=== PATIENT | male | born 1955 | race American Indian/Alaskan Native ===

== ENCOUNTER 2018-09-18 13:03 | Emergency (ER) | payer BC ==
[2018-09-18] MEDS ORDERED: ASPIRIN PO ONE (13:10)
[2018-09-18 13:37] LABS: Hematocrit 37.7 % (35.5-45.6); Mean Corpuscular HGB Conc 34 % (32-34); Mean Corpuscular Volume 86 fl (84-94); Platelet Count 177 K/mm3 (140-440); Red Blood Count 4.37 M/mm3 (3.65-5.03); Red Cell Distribution Width 13.8 % (13.2-15.2)
--- NOTE | 2018-09-18 13:50 | XRay Report ---
AP CHEST: HISTORY: chest pain No comparison. Mild cardiomegaly is evident. Pulmonary vessels are within normal limits. Minor discoid atelectasis or scarring is noted at the right lung base. Otherwise, the lungs are clear. No pleural effusion or pneumothorax. The bony structures are grossly intact. IMPRESSION: Mild cardiomegaly. Minor discoid atelectasis or scarring at the right lung base.
[2018-09-18 13:53] LABS: BUN/Creatinine Ratio 14; Blood Urea Nitrogen 14 mg/dL (9-20); Calcium 8.9 mg/dL (8.4-10.2); Hemolysis Index 15
[2018-09-18] MEDS ORDERED: IBUPROFEN PO ONE (13:55)
[2018-09-18 14:26] LABS: Total Cells Counted 100
[2018-09-18 14:27] LABS: Giant Platelets Rare; Large Platelets Few; Platelet Estimate Consistent w Auto; Poikilocytosis Few
[2018-09-18 15:10] LABS: BUN/Creatinine Ratio 17; Blood Urea Nitrogen 15 mg/dL (9-20); Calcium 9.2 mg/dL (8.4-10.2); Hemolysis Index 12
[2018-09-18] MEDS ORDERED: NORCO 7.5/325 PO ONE (18:01)
--- NOTE | 2018-09-18 19:04 | Cat Scan Report ---
PROCEDURE: CT ANGIO CHEST TECHNIQUE: Axial images of the chest obtained with intravenous contrast with CTA protocol. Sagittal and coronal reconstructions also obtained. HISTORY: right pleuritic chest pain elevated ddimer COMPARISONS: No priors. FINDINGS: There is no evidence of pulmonary emboli. No aortic dissection or aneurysmal dilatation. No evidence of hilar or mediastinal adenopathy. No pericardial effusion. Cardiomegaly Small right pleural effusion. Elevation of the right hemidiaphragm and right basilar atelectasis. IMPRESSION: . No evidence of pulmonary emboli. Cardiomegaly. Small right pleural effusion. Elevation of the right hemidiaphragm and right basilar atelectasis. This document is electronically signed by Michael Garcia MD., September 18 2018 07:02:20 PM ET
--- NOTE | 2018-09-18 19:27 | Emergency Department Report ---
ED General Adult HPI - General Chief complaint: Chest Pain Stated complaint: CHEST PAIN Time Seen by Provider: 09/18/18 13:49 Source: patient Mode of arrival: Ambulatory Limitations: No Limitations - History of Present Illness Initial comments: Patient is a 63-year-old male who states for the last 2 days he's had some right chest discomfort laterally that he states it is pleuritic in nature. Patient states that he's not had a cough congestion fevers or chills. Patient is only thing he can think of that may have injured this area as he was leaning over in his truck for a long period of time while waiting in traffic and may have had some muscle strain at that time. He denies any heavy lifting or slips and falls or trauma. Patient states the pain is 8 out of 10 in severity and is worse with movement and with deep breaths. Severity scale (0 -10): 0 - Related Data Previous Rx's Medication Instructions Recorded Last Taken Type HYDROcodone/ACETAMINOPHEN 1 each PO Q6HR PRN #12 tablet 09/18/18 Unknown Rx [Hydrocodone-Acetamin 5-325 mg] predniSONE [Deltasone] 20 mg PO QDAY #5 tab 09/18/18 Unknown Rx Allergies Allergy/AdvReac Type Severity Reaction Status Date / Time No Known Allergies Allergy Unverified 09/18/18 13:05 ED Review of Systems ROS: Stated complaint: CHEST PAIN Other details as noted in HPI Comment: All other systems reviewed and negative ED Past Medical Hx - Past Medical History Hx Hypertension: Yes - Surgical History Past Surgical History?: No - Social History Smoking Status: Never Smoker Substance Use Type: Alcohol - Medications Home Medications: Home Medications Medication Instructions Recorded Confirmed Last Taken Type HYDROcodone/ACETAMINOPHEN 1 each PO Q6HR PRN #12 tablet 09/18/18 Unknown Rx [Hydrocodone-Acetamin 5-325 mg] predniSONE [Deltasone] 20 mg PO QDAY #5 tab 09/18/18 Unknown Rx ED Physical Exam - General Limitations: No Limitations General appearance: alert, in no apparent distress - Head Head exam: Present: atraumatic, normocephalic - Eye Eye exam: Present: normal appearance - ENT ENT exam: Present: mucous membranes moist - Neck Neck exam: Present: normal inspection - Respiratory Respiratory exam: Present: normal lung sounds bilaterally. Absent: respiratory distress, wheezes, rales, rhonchi, chest wall tenderness (right-sided rib pain is not reproducible with palpation) - Cardiovascular Cardiovascular Exam: Present: regular rate, normal rhythm, normal heart sounds. Absent: systolic murmur, diastolic murmur, rubs, gallop - GI/Abdominal GI/Abdominal exam: Present: soft, normal bowel sounds. Absent: distended, tenderness, guarding, rebound, rigid - Rectal Rectal exam: Present: deferred - Extremities Exam Extremities exam: Present: normal inspection - Back Exam Back exam: Present: normal inspection - Neurological Exam Neurological exam: Present: alert, oriented X3 - Psychiatric Psychiatric exam: Present: normal affect, normal mood - Skin Skin exam: Present: warm, dry, intact, normal color. Absent: rash ED Course Vital Signs 09/18/18 09/18/18 09/18/18 13:09 14:38 14:45 Temperature 98.6 F Pulse Rate 64 70 68 Respiratory 18 19 20 Rate Blood Pressure 128/75 Blood Pressure 129/74 [Left] O2 Sat by Pulse 100 96 Oximetry 09/18/18 09/18/18 09/18/18 15:00 15:15 15:31 Temperature Pulse Rate 66 64 64 Respiratory 20 17 18 Rate Blood Pressure 134/83 123/81 134/80 Blood Pressure [Left] O2 Sat by Pulse 96 93 95 Oximetry 09/18/18 09/18/18 09/18/18 15:45 16:01 16:15 Temperature Pulse Rate 62 65 61 Respiratory 17 8 L 16 Rate Blood Pressure 127/75 127/75 137/79 Blood Pressure [Left] O2 Sat by Pulse 93 93 94 Oximetry 09/18/18 09/18/18 09/18/18 16:59 17:01 17:15 Temperature Pulse Rate 68 64 64 Respiratory 16 21 18 Rate Blood Pressure 128/83 128/83 147/84 Blood Pressure [Left] O2 Sat by Pulse 96 98 95 Oximetry 09/18/18 09/18/18 17:30 17:45 Temperature Pulse Rate 64 67 Respiratory 18 18 Rate Blood Pressure 145/80 154/85 Blood Pressure [Left] O2 Sat by Pulse 97 95 Oximetry ED Medical Decision Making - Lab Data Result diagrams: 09/18/18 13:22 09/18/18 14:08 Lab Results 09/18/18 09/18/18 09/18/18 Range/Units 13:22 13:22 14:08 WBC 7.5 (4.5-11.0) K/mm3 RBC 4.37 (3.65-5.03) M/mm3 Hgb 13.0 (11.8-15.2) gm/dl Hct 37.7 (35.5-45.6) % MCV 86 (84-94) fl MCH 30 (28-32) pg MCHC 34 (32-34) % RDW 13.8 (13.2-15.2) % Plt Count 177 (140-440) K/mm3 Cataño % (Auto) Speech And Hearing Director Add Manual Diff Complete Total Counted 100 Seg Neuts % (Manual) 67.0 (40.0-70.0) % Band Neutrophils % 0 % Lymphocytes % (Manual) 19.0 (13.4-35.0) % Reactive Lymphs % (Man) 0 % Monocytes % (Manual) 9.0 H (0.0-7.3) % Eosinophils % (Manual) 4.0 (0.0-4.3) % Basophils % (Manual) 1.0 (0.0-1.8) % Metamyelocytes % 0 % Myelocytes % 0 % Promyelocytes % 0 % Blast Cells % 0 % Nucleated RBC % Not Reportable Seg Neutrophils # Man 5.0 (1.8-7.7) K/mm3 Band Neutrophils # 0.0 K/mm3 Lymphocytes # (Manual) 1.4 (1.2-5.4) K/mm3 Abs React Lymphs (Man) 0.0 K/mm3 Monocytes # (Manual) 0.7 (0.0-0.8) K/mm3 Eosinophils # (Manual) 0.3 (0.0-0.4) K/mm3 Basophils # (Manual) 0.1 (0.0-0.1) K/mm3 Metamyelocytes # 0.0 K/mm3 Myelocytes # 0.0 K/mm3 Promyelocytes # 0.0 K/mm3 Blast Cells # 0.0 K/mm3 WBC Morphology Not Reportable Hypersegmented Neuts Not Reportable Hyposegmented Neuts Not Reportable Hypogranular Neuts Not Reportable Smudge Cells Not Reportable Toxic Granulation Not Reportable Toxic Vacuolation Not Reportable Dohle Bodies Not Reportable Pelger-Huet Anomaly Not Reportable Jerry Rods Not Reportable Platelet Estimate Consistent w auto Clumped Platelets Not Reportable Plt Clumps, EDTA Not Reportable Large Platelets Few Giant Platelets Rare Platelet Satelliting Not Reportable Plt Morphology Comment Not Reportable RBC Morphology Not Reportable Dimorphic RBCs Not Reportable Polychromasia Not Reportable Hypochromasia Not Reportable Poikilocytosis Few Anisocytosis Not Reportable Microcytosis Not Reportable Macrocytosis Not Reportable Spherocytes Not Reportable Pappenheimer Bodies Not Reportable Sickle Cells Not Reportable Target Cells Not Reportable Tear Drop Cells Not Reportable Ovalocytes Not Reportable Helmet Cells Not Reportable [place] Bodies Not Reportable [place] Rings Not Reportable Rebekah Cells Not Reportable Bite Cells Not Reportable Crenated Cell Not Reportable Elliptocytes Not Reportable Acanthocytes (Spur) Not Reportable Rouleaux Not Reportable Hemoglobin C Crystals Not Reportable Schistocytes Not Reportable Malaria parasites Not Reportable Aki Bodies Not Reportable Hem Pathologist Commnt No D-Dimer 559.56 H (0-234) ng/mlDDU Sodium 142 (137-145) mmol/L Potassium 3.8 (3.6-5.0) mmol/L Chloride 105.2 (98-107) mmol/L Carbon Dioxide 28 (22-30) mmol/L Anion Gap 13 mmol/L BUN 14 (9-20) mg/dL Creatinine 1.0 (0.8-1.5) mg/dL Estimated GFR > 60 ml/min BUN/Creatinine Ratio 14 % Glucose 90 (75-100) mg/dL Calcium 8.9 (8.4-10.2) mg/dL Troponin T < 0.010 (0.00-0.029) ng/mL 09/18/18 Range/Units 14:08 WBC (4.5-11.0) K/mm3 RBC (3.65-5.03) M/mm3 Hgb (11.8-15.2) gm/dl Hct (35.5-45.6) % MCV (84-94) fl MCH (28-32) pg MCHC (32-34) % RDW (13.2-15.2) % Plt Count (140-440) K/mm3 Cataño % (Auto) Add Manual Diff Total Counted Seg Neuts % (Manual) (40.0-70.0) % Band Neutrophils % % Lymphocytes % (Manual) (13.4-35.0) % Reactive Lymphs % (Man) % Monocytes % (Manual) (0.0-7.3) % Eosinophils % (Manual) (0.0-4.3) % Basophils % (Manual) (0.0-1.8) % Metamyelocytes % % Myelocytes % % Promyelocytes % % Blast Cells % % Nucleated RBC % Seg Neutrophils # Man (1.8-7.7) K/mm3 Band Neutrophils # K/mm3 Lymphocytes # (Manual) (1.2-5.4) K/mm3 Abs React Lymphs (Man) K/mm3 Monocytes # (Manual) (0.0-0.8) K/mm3 Eosinophils # (Manual) (0.0-0.4) K/mm3 Basophils # (Manual) (0.0-0.1) K/mm3 Metamyelocytes # K/mm3 Myelocytes # K/mm3 Promyelocytes # K/mm3 Blast Cells # K/mm3 WBC Morphology Hypersegmented Neuts Hyposegmented Neuts Hypogranular Neuts Smudge Cells Toxic Granulation Toxic Vacuolation Dohle Bodies Pelger-Huet Anomaly Jerry Rods Platelet Estimate Clumped Platelets Plt Clumps, EDTA Large Platelets Giant Platelets Platelet Satelliting Plt Morphology Comment RBC Morphology Dimorphic RBCs Polychromasia Hypochromasia Poikilocytosis Anisocytosis Microcytosis Macrocytosis Spherocytes Pappenheimer Bodies Sickle Cells Target Cells Tear Drop Cells Ovalocytes Helmet Cells Warren-[place]il Bodies [place] Rings Rebekah Cells Bite Cells Crenated Cell Elliptocytes Acanthocytes (Spur) Rouleaux Hemoglobin C Crystals Schistocytes Malaria parasites Aki Bodies Hem Pathologist Commnt D-Dimer (0-234) ng/mlDDU Sodium 143 (137-145) mmol/L Potassium 4.1 (3.6-5.0) mmol/L Chloride 106.3 (98-107) mmol/L Carbon Dioxide 24 (22-30) mmol/L Anion Gap 17 mmol/L BUN 15 (9-20) mg/dL Creatinine 0.9 (0.8-1.5) mg/dL Estimated GFR > 60 ml/min BUN/Creatinine Ratio 17 % Glucose 91 (75-100) mg/dL Calcium 9.2 (8.4-10.2) mg/dL Troponin T < 0.010 (0.00-0.029) ng/mL - EKG Data -: EKG Interpreted by Nm - EKG Data 09/18/18 19:27 EKG shows sinus rhythm 64 normal axis normal intervals and no ST segment elevation or depressions. The patient does have T-wave inversions in V5 and V6. - Radiology Data [facility] [address] [place] [address] Cat Scan Report Signed Patient: PERRY DAUGHERTY MR#: [id number] : 1955 Acct:[id number] Age/Sex: 63 / M ADM Date: 09/18/18 Loc: ED Attending Dr: Ordering Physician: HUGH CUNNINGHAM MD Date of Service: 09/18/18 Procedure(s): CT angio chest Accession Number(s): [id number] cc: HUGH CUNNINGHAM MD PROCEDURE: CT ANGIO CHEST TECHNIQUE: Axial images of the chest obtained with intravenous contrast with CTA protocol. Sagittal and coronal reconstructions also obtained. HISTORY: right pleuritic chest pain elevated ddimer COMPARISONS: No priors. FINDINGS: There is no evidence of pulmonary emboli. No aortic dissection or aneurysmal dilatation. No evidence of hilar or mediastinal adenopathy. No pericardial effusion. Cardiomegaly Small right pleural effusion. Elevation of the right hemidiaphragm and right basilar atelectasis. IMPRESSION: . No evidence of pulmonary emboli. Cardiomegaly. Small right pleural effusion. Elevation of the right hemidiaphragm and right basilar atelectasis. This document is electronically signed by Michael Garcia MD., September 18 2018 07:02:20 PM ET Transcribed By: MARK ANTHONY Dictated By: MICHAEL GARCIA MD Electronically Authenticated By: MICHAEL GARCIA MD Signed Date/Time: 09/18/181903 DD/ 21 TD/TT: 09/18/181821 - Medical Decision Making Patient's CT is negative for a pulmonary embolus. Patient likely with pleurisy with a small pleural effusion. Patient be discharged home with Meds. symptomatically. Critical care attestation.: If time is entered above; I have spent that time in minutes in the direct care of this critically ill patient, excluding procedure time. ED Disposition Clinical Impression: Pleurisy with effusion Disposition: DC-01 TO HOME OR SELFCARE Is pt being admited?: No Does the pt Need Aspirin: No Condition: Stable Instructions: Pleurisy (ED) Referrals: AISHWARYA FREIRE MD [Primary Care Provider] - 3-5 Days Time of Disposition: 19:31
[2018-09-18 19:53] VITALS: BP 129/74
== END 2018-09-18 19:51 | disposition home or self-care (01) ==
LOC: ED 13:03
DX: J90 Pleural effusion, not elsewhere classified (principal); I10 Essential (primary) hypertension
CPT/HCPCS: 36415; 71045; 71275; 80048; 84484; 85007; 85025; 85379; 93005; 93010; 99285; Q9967

== ENCOUNTER 2018-10-07 11:54 | Inpatient (IN) | payer BC ==
--- NOTE | 2018-10-07 12:33 | Emergency Department Report ---
Chief Complaint: Dyspnea/Respdistress Stated Complaint: DR ORDERED Time Seen by Provider: 10/07/18 12:30 - HPI History of Present Illness: pt presents with a cough that began a couple days ago yellow phlegm production sob no fever no V/D states his PCP sent him to the ER for "PNA" did not have any imaging done right sided CP since 09/18/18 due to pleurisy PMHx HTN non smoker daily drinker MSE screening note: Focused history and physical exam performed. Due to findings the following was ordered: labs, EKG, CXR ED Disposition for MSE Condition: Stable
[2018-10-07 12:59] LABS: Basophils % (Auto) 0.2 % (0.0-1.8); Eosinophils # (Auto) 0.2 K/mm3 (0.0-0.4); Eosinophils % (Auto) 1.6 % (0.0-4.3); Hematocrit 34.8 % (35.5-45.6); Hemoglobin 11.7 gm/dl (11.8-15.2); Lymphocytes # (Auto) 0.9 K/mm3 (1.2-5.4); Lymphocytes % (Auto) 5.8 % (13.4-35.0); Mean Corpuscular HGB Conc 34 % (32-34); Mean Corpuscular Volume 86 fl (84-94); Monocytes # (Auto) 1.7 K/mm3 (0.0-0.8); Monocytes % (Auto) 11.5 % (0.0-7.3); Platelet Count 307 K/mm3 (140-440); Red Blood Count 4.04 M/mm3 (3.65-5.03); Red Cell Distribution Width 13.5 % (13.2-15.2)
[2018-10-07] MEDS ORDERED: IBUPROFEN PO ONE (13:38)
[2018-10-07] MEDS ORDERED: NORCO 5/325 PO ONE (13:38)
[2018-10-07] MEDS ORDERED: NACL 0.9% 1000 ML 1,000 ML IV ONE (13:40)
--- NOTE | 2018-10-07 13:44 | Emergency Department Report ---
HPI - General Chief Complaint: Dyspnea/Respdistress Time Seen by Provider: 10/07/18 12:30 - HPI HPI: Room 4 The patient is 63-year-old male presented with a chief complaint of right side pain. The patient states since 09/18/2018 had a constant pain in his right chest and flank. The patient had a CT angiogram of the chest performed 09/18/2018 which was read as negative for pulmonary emboli, elevation of right hemidiaphragm and right basilar atelectasis. The patient is to pleuritic component condition to the diaphoresis. Patient denies fever nausea or vomiting. The patient is complaining of a cough productive of yellow sputum for the past 3 days. The patient has been given ibuprofen and steroids but states it has not helped his symptoms. The patient was given a referral to passenger interline clerk Dr. Asher today who returns to the patient to be admitted for further management. The patient gets his pain score of 6-7/10 Location: Right side Duration: Constant since 09/18/2018 Quality: Pain Severity: 6-7/10 Modifying factors: [see above] Context: [see above] Mode of transportation: [not driving] ED Past Medical Hx - Past Medical History Previous Medical History?: Yes Hx Hypertension: Yes - Surgical History Past Surgical History?: No - Family History Family history: no significant - Social History Smoking Status: Former Smoker (none since 1982) Substance Use Type: None (denies illicit drug use), Alcohol (2 drinks daily) - Medications Home Medications: Home Medications Medication Instructions Recorded Confirmed Last Taken Type HYDROcodone/ACETAMINOPHEN 1 each PO Q6HR PRN #12 tablet 09/18/18 Unknown Rx [Hydrocodone-Acetamin 5-325 mg] predniSONE [Deltasone] 20 mg PO QDAY #5 tab 09/18/18 Unknown Rx ED Review of Systems ROS: Stated complaint: DR ORDERED Other details as noted in HPI Constitutional: chills. denies: fever Eyes: denies: eye pain ENT: denies: throat pain Respiratory: cough, shortness of breath Cardiovascular: denies: chest pain Endocrine: no symptoms reported Gastrointestinal: denies: nausea, vomiting Genitourinary: denies: dysuria Musculoskeletal: denies: back pain Neurological: denies: headache Physical Exam - Physical Exam Vital Signs: Vital Signs 10/07/18 12:30 Temperature 98.1 F Pulse Rate 62 Respiratory 18 Rate Blood Pressure 93/62 [Right] O2 Sat by Pulse 97 Oximetry Physical Exam: GENERAL: The patient is well-developed well-nourished male lying on stretcher not appearing to be in acute distress. [] HEENT: Normocephalic. Atraumatic. Extraocular motions are intact. Patient has moist mucous membranes. NECK: Supple. Trachea midline CHEST/LUNGS: Clear to auscultation. There is no respiratory distress noted. HEART/CARDIOVASCULAR: Regular. There is no tachycardia. There is no gallop rub or murmur. ABDOMEN: Abdomen is soft, nontender. Absent Pate sign. Patient has normal bowel sounds. There is no abdominal distention. SKIN: There is no rash. There is no edema. There is no diaphoresis. NEURO: The patient is awake, alert, and oriented. The patient is cooperative. The patient has normal speech MUSCULOSKELETAL: There is no evidence of acute injury. ED Course Vital Signs 10/07/18 12:30 Temperature 98.1 F Pulse Rate 62 Respiratory 18 Rate Blood Pressure 93/62 [Right] O2 Sat by Pulse 97 Oximetry ED Medical Decision Making - Lab Data Result diagrams: 10/07/18 12:39 10/07/18 12:39 - EKG Data -: EKG Interpreted by Me EKG shows normal: sinus rhythm Rate: normal - EKG Data When compared to previous EKG there are: no significant change Interpretation: unchanged when compared t (09/18/2018) - Radiology Data Radiology results: report reviewed (chest x-ray), image reviewed (chest x-ray) interpreted by me: Chest [id number] right-sided pleural effusion and no pneumothorax [address] [address] XRay Report Signed Patient: PERRY DAUGHERTY MR#: [id number] : 1955 Acct:[id number] Age/Sex: 63 / M ADM Date: 10/07/18 Loc: ED Attending Dr: Ordering Physician: LUCAS CABAN Date of Service: 10/07/18 Procedure(s): XR chest routine 2V Accession Number(s): [id number] cc: LUCAS CABAN Fluoro Time In Minutes: ROUTINE CHEST, TWO VIEWS: HISTORY: Cough, chest pain. Compared to 09/18/18. Borderline to mild cardiomegaly is stable. A moderate right pleural effusion has developed which compresses the right middle and lower lobes. Infiltrate at the right lung base cannot be excluded. The remainder of the lungs are clear. No pneumothorax. The bony structures are intact. Moderate thoracic spondylosis is noted. IMPRESSION: Borderline to mild cardiomegaly. Moderate right pleural effusion. Compressive atelectasis at the right lung base. Transcribed By: TTR Dictated By: ROBB GONSALES JR, MD Electronically Authenticated By: ROBB GONSALES JR, MD Signed Date/Time: 10/07/181350 DD/ 135 TD/TT: 10/07/18 135 - Differential Diagnosis pleurisy, pleural mass, pleural effusion, pneumonia, Critical care attestation.: If time is entered above; I have spent that time in minutes in the direct care of this critically ill patient, excluding procedure time. ED Disposition Clinical Impression: Loculated pleural effusion, Right-sided chest pain, Pleurisy Disposition: OP ADMIT IP TO THIS HOSP Is pt being admited?: Yes Does the pt Need Aspirin: No Condition: Fair Instructions: Chest Pain (ED) Time of Disposition: 14:14 (hospitalist paged (Dr Sethi))
--- NOTE | 2018-10-07 13:55 | XRay Report ---
ROUTINE CHEST, TWO VIEWS: HISTORY: Cough, chest pain. Compared to 09/18/18. Borderline to mild cardiomegaly is stable. A moderate right pleural effusion has developed which compresses the right middle and lower lobes. Infiltrate at the right lung base cannot be excluded. The remainder of the lungs are clear. No pneumothorax. The bony structures are intact. Moderate thoracic spondylosis is noted. IMPRESSION: Borderline to mild cardiomegaly. Moderate right pleural effusion. Compressive atelectasis at the right lung base.
[2018-10-07 14:10] LABS: Alanine Aminotransferase 8 units/L (7-56); Albumin 3.4 g/dL (3.9-5); BUN/Creatinine Ratio 11; Blood Urea Nitrogen 20 mg/dL (9-20); Calcium 9.6 mg/dL (8.4-10.2); Hemolysis Index 1
--- NOTE | 2018-10-07 14:23 | History and Physical Report ---
History of Present Illness Chief complaint: I cant breathe, and I was hurting on my right side History of present illness: 63 YO Male with HTN presents to ED for evaluation. Pt states that he has experienced shortness of breath and productive couch with yellow sputum over the past 3 days with persistent symptoms over the same time frame. Pt denies fever, chills, CP, Palpitations, Prolonged travel/immobility, unintentional weight loss, night sweats, bone pain, skin rash, or recent ill contacts. 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 Pt was seen and evaluated in ED and found to have RML Pneumonia complicated by a Right Pleural Effusion, ARF, as well as SIRS. Pt admitted to medical floor and initiated on Pneumonia protocol. Pulmonary team consulted in ED. CT chest pending at time of admission. Past History Past Medical History: hypertension Past Surgical History: No surgical history, Other (reviewed) Social history: . denies: smoking, alcohol abuse, prescription drug abuse Family history: hypertension Medications and Allergies Allergies Allergy/AdvReac Type Severity Reaction Status Date / Time No Known Allergies Allergy Verified 10/07/18 12:35 Home Medications Medication Instructions Recorded Confirmed Last Taken Type Carvedilol Phosphate [Carvedilol 80 mg PO QDAY 10/07/18 10/07/18 Unknown History ER] Fenofibric Acid (Choline) 135 mg PO QDAY 10/07/18 10/07/18 Unknown History [Trilipix] Nisoldipine [Sular] 17 mg PO QDAY 10/07/18 10/07/18 Unknown History Active Meds: Active Medications Sodium Chloride (Nacl 0.9% 1000 Ml) 1,000 mls @ 999 mls/hr IV ONCE ONE Stop: 10/07/18 14:40 Last Admin: 10/07/18 14:01 Dose: 999 mls/hr Documented by: Review of Systems Constitutional: no weight loss, no weight gain, no fever Ears, nose, mouth and throat: no ear pain, no ear discharge, no tinnitis, no decreased hearing Cardiovascular: shortness of breath, dyspnea on exertion, no chest pain Respiratory: cough, cough with sputum, shortness of breath, no congestion, no wheezing Gastrointestinal: no nausea, no vomiting, no diarrhea, no constipation Genitourinary Male: no hematuria, no flank pain, no discharge, no urinary frequency, no urinary hesitancy Rectal: no pain, no incontinence, no bleeding Musculoskeletal: no neck stiffness, no neck pain, no arm numbness/tingling Integumentary: no rash, no pruritis, no redness, no sores, no wounds Neurological: no transient paralysis, no paralysis, no weakness, no parathesias, no numbness, no tingling Psychiatric: no anxiety, no memory loss, no change in sleep habits, no sleep disturbances, no insomnia, no hypersomnia Endocrine: no cold intolerance, no heat intolerance, no polyphagia, no excessive thirst, no polydipsia, no polyuria, no nocturia Hematologic/Lymphatic: no easy bruising, no easy bleeding Allergic/Immunologic: no urticaria, no allergic rhinitis, no wheezing Exam - Constitutional Vitals: Temp Pulse Resp BP Pulse Ox 98.1 F 65 20 108/61 92 10/07/18 12:30 10/07/18 14:15 10/07/18 14:15 10/07/18 14:15 10/07/18 14:15 General appearance: Present: mild distress - EENT Eyes: Present: PERRL ENT: hearing intact, clear oral mucosa - Neck Neck: Present: supple, normal ROM - Respiratory Respiratory effort: normal Respiratory: bilateral: diminished - Cardiovascular Heart Sounds: Present: S1 & S2. Absent: rub, click - Extremities Extremities: pulses symmetrical, No edema Peripheral Pulses: within normal limits - Abdominal General gastrointestinal: Present: soft, non-tender, non-distended, normal bowel sounds Male genitourinary: Present: normal - Integumentary Integumentary: Present: clear, warm, dry - Musculoskeletal Musculoskeletal: gait normal, strength equal bilaterally - Psychiatric Psychiatric: appropriate mood/affect, intact judgment & insight - Neurologic Neurologic: CNII-XII intact, moves all extremities Results - Labs CBC & Chem 7: 10/07/18 12:39 10/07/18 12:39 Labs: Abnormal lab results 10/07/18 10/07/18 Range/Units 12:39 12:39 WBC 15.1 H (4.5-11.0) K/mm3 Hgb 11.7 L (11.8-15.2) gm/dl Hct 34.8 L (35.5-45.6) % Lymph % (Auto) 5.8 L (13.4-35.0) % [place] % (Auto) 11.5 H (0.0-7.3) % Lymph # 0.9 L (1.2-5.4) K/mm3 [place] # 1.7 H (0.0-0.8) K/mm3 Seg Neutrophils % 80.9 H (40.0-70.0) % Seg Neutrophils # 12.2 H (1.8-7.7) K/mm3 Creatinine 1.9 H (0.8-1.5) mg/dL Glucose 123 H (75-100) mg/dL Alkaline Phosphatase 27 L (35-129) units/L Albumin 3.4 L (3.9-5) g/dL Assessment and Plan - Patient Problems (1) Pneumonia Current Visit: Yes Status: Acute Qualifiers: Laterality: right Lung location: middle lobe of lung Plan to address problem: Admit to medical floor: Pneumonia Protocol: IV antibiotic therapy, blood cultures, supplemental oxygen, nebulizer therapy, pulse oximetry, NIPPV as clinically indicated, CBC, BMP, Chest X ray, CT Chest, D dimer, BNP (2) ARF (acute renal failure) with tubular necrosis Current Visit: Yes Status: Acute Plan to address problem: IVF resuscitation therapy, monitor uop q shift, repeat bmp to monitor serum creatnine. (3) SIRS (systemic inflammatory response syndrome) Current Visit: Yes Status: Acute Plan to address problem: Iv antibiotic therapy, CBC, CMP, IVF resuscitation therapy, (4) Loculated pleural effusion Current Visit: Yes Status: Acute Plan to address problem: CT chest, Treat Pneumonia, Right lateral decubitus chest x ray to evaluate for layering of pleural effusion and improvement of pneumonia. IF worsening symptoms or layering of effusion then possible IR consult for thoracentesis. (5) DVT prophylaxis Current Visit: Yes Status: Acute Plan to address problem: SCD to BLE while in bed. Prophylactic heparin
[2018-10-07] MEDS ORDERED: SODIUM CHLORIDE FLUSH SYRINGE 10 ML IV PRN (14:58)
[2018-10-07] MEDS ORDERED: MORPHINE IV PRN (14:58)
[2018-10-07] MEDS ORDERED: TYLENOL PO PRN (14:58)
[2018-10-07] MEDS ORDERED: ZOFRAN IV PRN (14:58)
--- NOTE | 2018-10-07 17:20 | Cat Scan Report ---
PROCEDURE: CT CHEST WO CON TECHNIQUE: CT of the chest was performed without intravenous contrast. Coronal and sagittal reconstructions were included. HISTORY: dypsnea COMPARISONS: CTA of the chest from 09/18/2018. FINDINGS: Lungs/pleura: Large, partially loculated right pleural effusion is seen. There are multiple loculated components including some fluid anteriorly along the right lower thorax. Multifocal patchy right daniel g opacities are seen. No pneumothorax. The airways are patent. No nodules or masses. Bones: No acute finding. Thoracic inlet/chest wall/axilla: No thyroid nodules seen. No chest wall masses. No axillary lymphade nopathy. Upper abdomen: The visualized structures demonstrate no abnormality. Heart/pericardium: No coronary artery calculi. Unchanged multichamber cardiac enlargement. No pericar dial effusion. Mediastinum: No mediastinal masses or enlarged lymph nodes. Great vessels: Mildly ectatic descending thoracic aorta is seen measuring up to 3.3 cm AP. The ascend ing thoracic aorta is normal in caliber. IMPRESSION: 1. Large, partially loculated right pleural effusion with adjacent atelectasis versus pneumonia. 2. Unchanged cardiomegaly. 3. Unchanged mildly ectatic descending thoracic aorta measuring up to 3.3 cm. This document is electronically signed by Sophia Bell., October 07 2018 05:18:29 PM ET
[2018-10-07] MEDS: PROVENTIL IH PRN (21:29)
[2018-10-07] MEDS: HEPARIN SUB-Q SCH (22:39)
[2018-10-07] MEDS: SODIUM CHLORIDE FLUSH SYRINGE 10 ML IV SCH (22:43)
[2018-10-07] MEDS: COREG PO SCH (22:43)
[2018-10-08] MEDS: PERCOCET 5/325 PO PRN ×3 (00:42→20:18)
[2018-10-08] MEDS: PROVENTIL IH PRN (06:20)
[2018-10-08 06:49] LABS: Basophils % (Auto) 0.1 % (0.0-1.8); Eosinophils # (Auto) 0.1 K/mm3 (0.0-0.4); Eosinophils % (Auto) 0.8 % (0.0-4.3); Lymphocytes # (Auto) 0.9 K/mm3 (1.2-5.4); Lymphocytes % (Auto) 5.1 % (13.4-35.0); Mean Corpuscular HGB Conc 33 % (32-34); Mean Corpuscular Volume 87 fl (84-94); Monocytes # (Auto) 1.9 K/mm3 (0.0-0.8); Monocytes % (Auto) 11.3 % (0.0-7.3); Platelet Count 305 K/mm3 (140-440); Red Blood Count 4.16 M/mm3 (3.65-5.03); Red Cell Distribution Width 13.6 % (13.2-15.2)
[2018-10-08 07:11] LABS: BUN/Creatinine Ratio 15; Blood Urea Nitrogen 20 mg/dL (9-20); Calcium 9.1 mg/dL (8.4-10.2); Hemolysis Index 0
[2018-10-08] MEDS: DUONEB *Not for PRN Use IH SCH ×3 (08:16→20:30)
--- NOTE | 2018-10-08 08:16 | XRay Report ---
PORTABLE CHEST INDICATION: Right pleural effusion. COMPARISON: Yesterday. FINDINGS: Portable, frontal chest radiograph, 7:40 AM, 10/08/2018 demonstrates continued interval worsening dating back to 09/18/2018 at this institution with moderate right lung opacification/effusion with small aerated, though infiltrated right mid lung zone now noted. Stable cardiomediastinal silhouette/possible cardiomegaly. Clear left lung. Stable bones with few degenerative changes. EKG leads. CONCLUSION: Continued interval radiographic worsening with now moderate right lung opacity/effusion with few other findings, as described. Please correlate. Thank you for the opportunity to participate in this patient's care.
[2018-10-08] MEDS ORDERED: ZITHROMAX 500 MG in NACL 0.9% 250ML 250 ML IV SCH (10:00)
[2018-10-08] MEDS ORDERED: CARVEDILOL PHOSPHATE 80 MG PO SCH (10:00)
[2018-10-08] MEDS ORDERED: FENOFIBRIC ACID 135 MG PO SCH (10:00)
--- NOTE | 2018-10-08 10:01 | Progress Note ---
Assessment and Plan / Pneumonia RLL Admit to medical floor: Pneumonia Protocol: IV antibiotic therapy, blood cultures, supplemental oxygen, nebulizer therapy, pulse oximetry, NIPPV as clinically indicated, CBC, BMP, Chest X ray, CT Chest, D dimer, BNP /ARF (acute renal failure) with vasomotor nephropathy IVF resuscitation therapy, monitor uop q shift, repeat bmp to monitor serum creatnine. / SIRS (systemic inflammatory response syndrome) Iv antibiotic therapy, IVF resuscitation therapy, /Loculated pleural effusion CT chest, Treat Pneumonia, Right lateral decubitus chest x ray to evaluate for layering of pleural effusion and improvement of pneumonia. IF worsening symptoms or layering of effusion then possible IR consult for thoracentesis. / DVT prophylaxis SCD to BLE while in bed. Prophylactic heparin Brief History: 63 YO Male with HTN presents to ED for evaluation of shortness of breath and productive couch with yellow sputum over the past 3 days. 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 Pt was seen and evaluated in ED and found to have RML Pneumonia complicated by a Right Pleural Effusion, ARF, as well as possible sepsis. Pt admitted to medical floor and initiated on Pneumonia protocol. Pulmonary team consulted in ED. CT chest w/o contrast: 1. Large, partially loculated right pleural effusion with adjacent atelectasis versus pneumonia. 2. Unchanged cardiomegaly. 3. Unchanged mildly ectatic descending thoracic aorta measuring up to 3.3 cm. Hospitalists physical exam: GENERAL: well-developed and well-nourished white male lying on bed appeared to be in no discomfort. HEENT: Normocephalic. Atraumatic. No conjunctival congestion or icterus. Erin ent has moist mucous membranes. NECK: Supple. Trachea midline. CHEST/LUNGS: Diminished breath sounds on the right side, breathing nonlabored. No wheezes crackles or rhonchi. HEART/CARDIOVASCULAR: Regular in rate and rhythm. S1 and S2 positive. ABDOMEN: Abdomen is soft, nontender. Patient has normal bowel sounds. SKIN: There is no rash. Warm and dry. NEURO: No focal motor deficit. Follows command. MUSCULOSKELETAL: No joint effusion or tenderness. EXTRIMITY: No edema, no cyanosis or clubbing. PSYCH: Cooperative. Subjective Date of service: 10/08/18 Interval history: Patient seen and examined. Medical records and medication list reviewed. No acute event overnight noted by the RN. Patient c/o right sided chest pain and difficulty breathing. Patient is tolerating diet. Discussed plan of care at bedside with patient. Objective - Constitutional Vitals: Vital Signs - 12hr 10/07/18 10/07/18 10/08/18 22:43 23:30 05:55 Temperature 99.5 F 98.5 F Pulse Rate 74 76 72 Pulse Rate [ Anterior Bilateral Throughout] Respiratory 20 20 22 Rate Respiratory Rate [Anterior Bilateral Throughout] Blood Pressure 109/48 106/53 107/63 O2 Sat by Pulse 96 96 Oximetry 10/08/18 10/08/18 10/08/18 06:20 06:30 08:16 Temperature Pulse Rate Pulse Rate [ 79 76 77 Anterior Bilateral Throughout] Respiratory Rate Respiratory 18 17 20 Rate [Anterior Bilateral Throughout] Blood Pressure O2 Sat by Pulse Oximetry 10/08/18 10/08/18 08:26 10:00 Temperature Pulse Rate Pulse Rate [ 79 Anterior Bilateral Throughout] Respiratory Rate Respiratory 20 Rate [Anterior Bilateral Throughout] Blood Pressure O2 Sat by Pulse 94 Oximetry - Labs CBC & Chem 7: 10/08/18 06:07 10/08/18 06:07 Labs: Abnormal lab results 10/07/18 10/07/18 10/07/18 Range/Units 12:39 12:39 17:28 WBC 15.1 H (4.5-11.0) K/mm3 Hgb 11.7 L (11.8-15.2) gm/dl Hct 34.8 L (35.5-45.6) % Lymph % (Auto) 5.8 L (13.4-35.0) % [place] % (Auto) 11.5 H (0.0-7.3) % Lymph # 0.9 L (1.2-5.4) K/mm3 [place] # 1.7 H (0.0-0.8) K/mm3 Seg Neutrophils % 80.9 H (40.0-70.0) % Seg Neutrophils # 12.2 H (1.8-7.7) K/mm3 D-Dimer 1224.63 H (0-234) ng/mlDDU Creatinine 1.9 H (0.8-1.5) mg/dL Glucose 123 H (75-100) mg/dL Alkaline Phosphatase 27 L (35-129) units/L Albumin 3.4 L (3.9-5) g/dL 10/08/18 10/08/18 Range/Units 06:07 06:07 WBC 16.7 H (4.5-11.0) K/mm3 Hgb (11.8-15.2) gm/dl Hct (35.5-45.6) % Lymph % (Auto) 5.1 L (13.4-35.0) % [place] % (Auto) 11.3 H (0.0-7.3) % Lymph # 0.9 L (1.2-5.4) K/mm3 [place] # 1.9 H (0.0-0.8) K/mm3 Seg Neutrophils % 82.7 H (40.0-70.0) % Seg Neutrophils # 13.8 H (1.8-7.7) K/mm3 D-Dimer (0-234) ng/mlDDU Creatinine (0.8-1.5) mg/dL Glucose 121 H (75-100) mg/dL Alkaline Phosphatase (35-129) units/L Albumin (3.9-5) g/dL
[2018-10-08] MEDS: HEPARIN SUB-Q SCH ×2 (10:04→21:49)
[2018-10-08] MEDS: SOLU-Medrol IV SCH (10:04)
[2018-10-08] MEDS: ROCEPHIN/NS 2 GM/100 ML 2 GM/100 ML BAG IV SCH (10:05)
[2018-10-08] MEDS: COREG PO SCH (10:05)
[2018-10-08] MEDS: NISOLDIPINE 17 MG PO SCH (10:06)
[2018-10-08] MEDS: SODIUM CHLORIDE FLUSH SYRINGE 10 ML IV SCH (10:06)
[2018-10-08] MEDS: TRICOR PO SCH (10:06)
--- NOTE | 2018-10-08 11:46 | Consultation ---
History of Present Illness Consult date: 10/08/18 Reason for consult: dyspnea, cough, chest pain, pleural effusion History of present illness: PULMONARY AND CRITICAL CARE CONSULTATION THANK YOU FOR ASKING US TO PARTICIPATE IN THE CARE OF THIS PATIENT. 63 YO Male with right sided pleuritic chest pain, HTN presents to ED for evaluation. Pt states that he has experienced shortness of breath,right sided pleuritic chest pain and productive couch with yellow sputum over the past 3 days with persistent symptoms over the same time frame. Pt denies fever, chills, Palpitations, Prolonged travel/immobility, unintentional weight loss, night sweats, bone pain, skin rash, or recent ill contacts. Patient treated with steroids and NSAID therapy given by the Emergency room but without relief. Pt was seen by me in my office for shortness of breath and right sided pleuritic chest pain yesterday and patient was sent to the emergency room.Pt was seen and evaluated in ED and found to have RML Pneumonia complicated by a Right Pleural Effusion, ARF, as well as SIRS. Pt admitted to medical floor and initiated on Pneumonia protocol. CT of the chest obtained showed large partially loculated pleural effusion with adjacent atelectasis or pneumonia.Patient also febrile and has leukocytosis. Patient placed on antibiotics Zithromax and ceftrioxone. Patient scheduled for thoracentesis.Pattient works for [employer]. No history of smoking, alcohol or drug abuse. Past History Past Medical History: hypertension Past Surgical History: No surgical history, Other (reviewed) Social history: . denies: smoking, alcohol abuse, prescription drug abuse Family history: hypertension Medications and Allergies Allergies Allergy/AdvReac Type Severity Reaction Status Date / Time No Known Allergies Allergy Verified 10/07/18 12:35 Home Medications Medication Instructions Recorded Confirmed Last Taken Type Carvedilol Phosphate [Carvedilol 80 mg PO QDAY 10/07/18 10/07/18 Unknown History ER] Fenofibric Acid (Choline) 135 mg PO QDAY 10/07/18 10/07/18 Unknown History [Trilipix] Nisoldipine [Sular] 17 mg PO QDAY 10/07/18 10/07/18 Unknown History Active Meds: Active Medications Acetaminophen (Tylenol) 650 mg PO Q4H PRN PRN Reason: Pain MILD(1-3)/Fever >100.5/WHITEHEAD Albuterol (Proventil) 2.5 mg IH Q4HRT PRN PRN Reason: Shortness Of Breath Last Admin: 10/08/18 06:20 Dose: 2.5 mg Documented by: Albuterol/Ipratropium (Duoneb *Not For Prn Use*) 1 ampul IH TIDRT [facility] Last Admin: 10/08/18 08:16 Dose: 1 ampul Documented by: Fenofibrate (Tricor) 145 mg PO DAILY [facility] Last Admin: 10/08/18 10:06 Dose: 145 mg Documented by: Heparin Sodium (Porcine) (Heparin) 5,000 unit SUB-Q Q12HR [facility] Last Admin: 10/08/18 10:04 Dose: 5,000 unit Documented by: Azithromycin 500 mg/ Sodium (Chloride) 250 mls @ 250 mls/hr IV Q24HR [facility]; Protocol Last Admin: 10/08/18 10:36 Dose: 250 mls/hr Documented by: Ceftriaxone Sodium (Rocephin/Ns 2 Gm/100 Ml) 2 gm in 100 mls @ 200 mls/hr IV Q24HR [facility]; Protocol Last Admin: 10/08/18 10:05 Dose: 200 mls/hr Documented by: Methylprednisolone Sodium Succinate (Solu-Medrol) 20 mg IV Q24HR [facility] Last Admin: 10/08/18 10:04 Dose: 20 mg Documented by: Miscellaneous Medication (Nisoldipine [Sular]) 17 mg PO QDAY [facility] Last Admin: 10/08/18 10:06 Dose: 17 mg Documented by: Morphine Sulfate (Morphine) 2 mg IV Q4H PRN PRN Reason: Pain, Moderate (4-6) Ondansetron HCl (Zofran) 4 mg IV Q8H PRN PRN Reason: Nausea And Vomiting Oxycodone/Acetaminophen (Percocet 5/325) 1 tab PO Q6H PRN PRN Reason: Pain, Moderate (4-6) Last Admin: 10/08/18 10:35 Dose: 1 tab Documented by: Sodium Chloride (Sodium Chloride Flush Syringe 10 Ml) 10 ml IV BID [facility] Last Admin: 10/08/18 10:06 Dose: 10 ml Documented by: Sodium Chloride (Sodium Chloride Flush Syringe 10 Ml) 10 ml IV PRN PRN PRN Reason: LINE FLUSH Review of Systems All systems: negative Physical Examination Vital signs: Vital Signs Temp Pulse Resp BP Pulse Ox 98.1 F 62 18 93/62 97 10/07/18 12:30 10/07/18 12:30 10/07/18 12:30 10/07/18 12:30 10/07/18 12:30 General appearance: alert, appears uncomfortable Eyes: non-icteric ENT: oropharynx moist Neck: supple, no JVD Effort: mildly labored Ascultation: Right: diminished breath sounds Percussion: Right: not dull Cardiovascular: regular rate and rhythm Gastrointestinal: normoactive bowel sounds, soft, non-tender Integumentary: normal Extremities: no cyanosis, no edema Musculoskeletal: no deformities Gait: poor gait normal mental status, non-focal exam, pupils equal and round, CN II-XII normal mood appropriate Results - Laboratory Findings CBC and BMP: 10/08/18 06:07 10/08/18 06:07 PT/INR, D-dimer D-Dimer 1224.63 ng/mlDDU (0-234) H 10/07/18 17:28 Abnormal lab findings: Abnormal Labs 10/07/18 10/07/18 10/07/18 12:39 12:39 17:28 WBC 15.1 H Hgb 11.7 L Hct 34.8 L Lymph % (Auto) 5.8 L [place] % (Auto) 11.5 H Lymph # 0.9 L [place] # 1.7 H Seg Neutrophils % 80.9 H Seg Neutrophils # 12.2 H D-Dimer 1224.63 H Creatinine 1.9 H Glucose 123 H Alkaline Phosphatase 27 L Albumin 3.4 L 10/08/18 10/08/18 06:07 06:07 WBC 16.7 H Hgb Hct Lymph % (Auto) 5.1 L [place] % (Auto) 11.3 H Lymph # 0.9 L [place] # 1.9 H Seg Neutrophils % 82.7 H Seg Neutrophils # 13.8 H D-Dimer Creatinine Glucose 121 H Alkaline Phosphatase Albumin - Diagnostic Findings Chest x-ray: report reviewed (MILD CARDIOMEGALY,MODERATE RIGHT PLEURAL EFFUSION, ATELECTASIS OR INFILTRATE.), image reviewed CT scan - chest: report reviewed, image reviewed Additional studies: Cat scan of chest done on 10/08/18 IMPRESSION: 1. Large, partially loculated right pleural effusion with adjacent atelectasis versus pneumonia. 2. Unchanged cardiomegaly. 3. Unchanged mildly ectatic descending thoracic aorta measuring up to 3.3 cm. Assessment and Plan 63 YO Male with right sided pleuritic chest pain, HTN presents to ED for evaluation. Pt states that he has experienced shortness of breath,right sided pleuritic chest pain and productive couch with yellow sputum over the past 3 days with persistent symptoms over the same time frame. Pt denies fever, chills, Palpitations, Prolonged travel/immobility, unintentional weight loss, night sweats, bone pain, skin rash, or recent ill contacts. Patient treated with steroids and NSAID therapy given by the Emergency room but without relief. Pt was seen by me in my office for shortness of breath and right sided pleuritic chest pain yesterday and patient was sent to the emergency room.Pt was seen and evaluated in ED and found to have RML Pneumonia complicated by a Right Pleural Effusion, ARF, as well as SIRS. Pt admitted to medical floor and initiated on Pneumonia protocol. CT of the chest obtained showed large partially loculated pleural effusion with adjacent atelectasis or pneumonia.Patient also febrile and has leukocytosis. Patient placed on antibiotics Zithromax and ceftrioxone. Patient scheduled for thoracentesis.Pattient works for [employer]. No history of smoking, alcohol or drug abuse. - Patient Problems (1) Loculated pleural effusion Current Visit: Yes Status: Acute Plan to address problem: Scheduled for thoracentesis under ultrasound guidance. (2) Pneumonia Current Visit: Yes Status: Acute Qualifiers: Laterality: right Lung location: middle lobe of lung Plan to address problem: Patient is on Zithromax and ceftrioxone. O2 supplementation. ABGs on room air. (3) Right-sided chest pain Current Visit: Yes Status: Acute Plan to address problem: Likely from right lower lobe pneumonia. (4) SIRS (systemic inflammatory response syndrome) Current Visit: Yes Status: Acute Plan to address problem: Patient on zithromax and ceftrioxone. Patient also receiving solumedrol. (5) ARF (acute renal failure) with tubular necrosis Current Visit: Yes Status: Acute Plan to address problem: Management as per nephrology.
[2018-10-08 13:15] LABS: INR 1.26 (0.87-1.13)
[2018-10-08 13:16] LABS: Partial Thromboplastin Time 37.7 Sec. (24.2-36.6)
[2018-10-09 09:17] LABS: Hematocrit 33.9 % (35.5-45.6); Hemoglobin 11.2 gm/dl (11.8-15.2); Mean Corpuscular HGB Conc 33 % (32-34); Mean Corpuscular Volume 87 fl (84-94); Platelet Count 305 K/mm3 (140-440); Red Cell Distribution Width 13.8 % (13.2-15.2)
[2018-10-09] MEDS: NISOLDIPINE 17 MG PO SCH (09:19)
[2018-10-09] MEDS: SOLU-Medrol IV SCH (09:20)
[2018-10-09] MEDS: ROCEPHIN/NS 2 GM/100 ML 2 GM/100 ML BAG IV SCH (09:20)
[2018-10-09] MEDS: ZITHROMAX PO SCH (09:20)
[2018-10-09] MEDS: TRICOR PO SCH (09:20)
[2018-10-09] MEDS: SODIUM CHLORIDE FLUSH SYRINGE 10 ML IV SCH ×3 (09:20→22:11)
[2018-10-09] MEDS: DUONEB *Not for PRN Use IH SCH ×3 (10:30→19:53)
[2018-10-09] MEDS ORDERED: XYLOCAINE 1% 20 mL ONE (11:25)
[2018-10-09] MEDS: HEPARIN SUB-Q SCH ×2 (11:51→22:11)
--- NOTE | 2018-10-09 12:06 | XRay Report ---
AP CHEST :10/09/18 CLINICAL: Immediately status post right thoracentesis with removal of 900 cc of fluid. COMPARISON:10/08/18 FINDINGS: Decreased loculated right pleural effusion with some clearing of the right lung base compared to the last exam. 2 loculated pockets of fluid remain along the right lateral chest and the right upper chest. No pneumothorax. The left lung is normally expanded and clear. IMPRESSION: No pneumothorax status post thoracentesis. Loculated right pleural effusion remains.
--- NOTE | 2018-10-09 12:09 | Ultrasound Report ---
ULTRASOUND GUIDED RIGHT THORACENTESIS: 10/09/18 10:02:00 CLINICAL: Right pleural effusion. pleural effusion. FINDINGS: Ultrasound demonstrated a large right pleural effusion. The procedure was explained to the patient and all questions answered. Informed consent was obtained. Using sterile technique, ultrasound guidance, 1% lidocaine and a 5-Tamazight Yueh catheter, right thoracentesis was performed with the patient sitting upright. 900 cc of bryan slightly cloudy fluid was removed. The patient tolerated the procedure well and there were no apparent complications. Fluid specimens were sent to the lab for analysis. Post procedure chest x-ray showed no pneumothorax. The post procedure chest x-ray showed relatively large residual loculated fluid collections in the right apex and along the right lateral chest. IMPRESSION: Uncomplicated right thoracentesis. Residual loculated fluid.
--- NOTE | 2018-10-09 13:52 | Progress Note ---
Assessment and Plan / Pneumonia RLL Admit to medical floor with Pneumonia Protocol: cont IV antibiotic therapy, follow blood cultures, supplemental oxygen as needed, nebulizer therapy /ARF (acute renal failure) with vasomotor nephropathy cont IVF resuscitation therapy, monitor uop q shift, /Sepsis with leukocytosis, DARLING, focal PNA - POA cont Iv antibiotic therapy, IVF resuscitation therapy, /Loculated pleural effusion Treat Pneumonia, Right lateral decubitus chest x ray ordered to evaluate for layering of pleural effusion and improvement of pneumonia. s/p thoracentesis by IR today drained 900cc bryan colored fluid. will follow pleural fluid study /hypoalbuminemia, due to sepsis / DVT prophylaxis SCD to BLE while in bed. Prophylactic heparin Brief History: 63 YO Male with HTN presents to ED for evaluation of shortness of breath and productive couch with yellow sputum over the past 3 days. Pt was seen and evalu ated by his ring sewer and treated as outpatient with steroid therapy and NSAID therapy without relief. Pt was seen and evaluated in ED and found to have RML Pneumonia complicated by a Right Pleural Effusion, ARF, as well as possible sepsis. Pt admitted to medical floor and initiated on Pneumonia protocol. Pulmonary team consulted in ED. CT chest w/o contrast: 1. Large, partially loculated right pleural effusion with adjacent atelectasis versus pneumonia. 2. Unchanged cardiomegaly. 3. Unchanged mildly ectatic descending thoracic aorta measuring up to 3.3 cm. Hospitalists physical exam: GENERAL: well-developed and well-nourished white male lying on bed appeared to be in no discomfort. HEENT: Normocephalic. Atraumatic. No conjunctival congestion or icterus. Patient has moist mucous membranes. NECK: Supple. Trachea midline. CHEST/LUNGS: improved breath sounds on the right side, breathing nonlabored. No wheezes crackles or rhonchi. HEART/CARDIOVASCULAR: Regular in rate and rhythm. S1 and S2 positive. ABDOMEN: Abdomen is soft, nontender. Patient has normal bowel sounds. SKIN: There is no rash. Warm and dry. NEURO: No focal motor deficit. Follows command. MUSCULOSKELETAL: No joint effusion or tenderness. EXTRIMITY: No edema, no cyanosis or clubbing. PSYCH: Cooperative. Subjective Date of service: 10/09/18 Interval history: Patient seen and examined. Medical records and medication list reviewed. No acute event overnight noted by the RN. Patient c/o right sided chest pain and difficulty breathing. Patient is tolerating diet. Discussed plan of care at bedside with patient. s/p thoracentesis today Objective - Constitutional Vitals: Vital Signs - 12hr 10/09/18 10/09/18 10/09/18 05:23 10:30 10:34 Temperature 99.2 F Pulse Rate 80 Pulse Rate [ 87 Anterior Bilateral Throughout] Respiratory 20 Rate Respiratory 22 Rate [Anterior Bilateral Throughout] Blood Pressure 125/72 O2 Sat by Pulse 88 97 Oximetry 10/09/18 10/09/18 10:39 13:35 Temperature 99.5 F Pulse Rate 82 Pulse Rate [ 83 Anterior Bilateral Throughout] Respiratory 20 Rate Respiratory 20 Rate [Anterior Bilateral Throughout] Blood Pressure 121/65 O2 Sat by Pulse 91 Oximetry - Labs CBC & Chem 7: 10/09/18 08:50 10/08/18 06:07 Labs: Abnormal lab results 10/09/18 10/09/18 Range/Units 08:50 11:20 WBC 18.5 H (4.5-11.0) K/mm3 Hgb 11.2 L (11.8-15.2) gm/dl Hct 33.9 L (35.5-45.6) % POC ABG pH 7.494 H (7.35-7.45) POC ABG pO2 75 L (80-105)
[2018-10-09 14:17] LABS: Total Cells Counted 100 /mm3
--- NOTE | 2018-10-09 14:49 | Progress Note ---
Assessment and Plan Loculated pleural effusion Pneumonia Right-sided chest pain SIRS (systemic inflammatory response syndrome) ARF (acute renal failure) with tubular necrosis - suspect empyema and will likely need CTSU evaluation for VAT's - send sputum C&S - no post thoracentesis PTX - continue supplemental oxygen to keep sats > 90% - follow cultures and cytology of pleural fluid in particular - continue empiric AB's - GI & VTE prophylaxis - bronchodilators with pulmonary hygiene per RT - PT/OT - continue other care per attending / other consultants .... re-evaluate in am & prn Subjective Date of service: 10/09/18 Principal diagnosis: R. Loculated pleural effusion; Pneumonia (CAP); Chest pain; SIRS;DARLING Interval history: Patient is seen today for: Right Loculated pleural effusion; Pneumonia (CAP); Right-sided chest pain; SIRS (systemic inflammatory response syndrome); ARF (acute renal failure) with tubular necrosis Seen and examined at bedside; 24hour events reviewed; nursing and respiratory care staff consulted; no adverse overnight events reported to me; feels much better s/p thoracentesis; no acute chest pains or palpitations; NO N/V/F/C Objective Vital Signs - 12hr 10/09/18 10/09/18 10/09/18 05:23 10:30 10:34 Temperature 99.2 F Pulse Rate 80 Pulse Rate [ 87 Anterior Bilateral Throughout] Respiratory 20 Rate Respiratory 22 Rate [Anterior Bilateral Throughout] Blood Pressure 125/72 O2 Sat by Pulse 88 97 Oximetry 10/09/18 10/09/18 10:39 13:35 Temperature 99.5 F Pulse Rate 82 Pulse Rate [ 83 Anterior Bilateral Throughout] Respiratory 20 Rate Respiratory 20 Rate [Anterior Bilateral Throughout] Blood Pressure 121/65 O2 Sat by Pulse 91 Oximetry Constitutional: no acute distress, alert Eyes: non-icteric ENT: oropharynx moist, other (mallampati 3) Neck: supple, no JVD, other (large neck circumference) Effort: mildly labored Ascultation: Right: diminished breath sounds (base), Bilateral: rhonchi Percussion: Right: dull (base) Cardiovascular: regular rate and rhythm, other (No R/M) Gastrointestinal: normoactive bowel sounds, soft, non-tender, non-distended Integumentary: normal Extremities: no cyanosis, no edema, pulses normal, no ischemia or petechiae Neurologic: normal mental status, non-focal exam, pupils equal and round, CN II- XII normal, motor strength normal and Psychiatric: mood appropriate, affect normal CBC and BMP: 10/09/18 08:50 10/08/18 06:07 ABG, PT/INR, D-dimer: ABG POC ABG pH 7.494 (7.35-7.45) H 10/09/18 11:20 POC ABG pCO2 36.5 (35-45) 10/09/18 11:20 POC ABG pO2 75 (80-105) L 10/09/18 11:20 POC ABG HCO3 28.1 (22-26 mml/L) 10/09/18 11:20 POC ABG Total CO2 29 (23-27mmol/L) 10/09/18 11:20 POC ABG O2 Sat 96 10/09/18 11:20 PT/INR, D-dimer PT 16.6 Sec. (12.2-14.9) H 10/08/18 12:15 INR 1.26 (0.87-1.13) H 10/08/18 12:15 D-Dimer 1224.63 ng/mlDDU (0-234) H 10/07/18 17:28 Abnormal lab findings: Abnormal Labs 10/07/18 10/07/18 10/07/18 12:39 12:39 17:28 WBC 15.1 H Hgb 11.7 L Hct 34.8 L Lymph % (Auto) 5.8 L [place] % (Auto) 11.5 H Lymph # 0.9 L [place] # 1.7 H Seg Neutrophils % 80.9 H Seg Neutrophils # 12.2 H PT INR APTT D-Dimer 1224.63 H POC ABG pH POC ABG pO2 Creatinine 1.9 H Glucose 123 H Alkaline Phosphatase 27 L Albumin 3.4 L 10/08/18 10/08/18 10/08/18 06:07 06:07 12:15 WBC 16.7 H Hgb Hct Lymph % (Auto) 5.1 L [place] % (Auto) 11.3 H Lymph # 0.9 L [place] # 1.9 H Seg Neutrophils % 82.7 H Seg Neutrophils # 13.8 H PT 16.6 H INR 1.26 H APTT 37.7 H D-Dimer POC ABG pH POC ABG pO2 Creatinine Glucose 121 H Alkaline Phosphatase Albumin 10/09/18 10/09/18 08:50 11:20 WBC 18.5 H Hgb 11.2 L Hct 33.9 L Lymph % (Auto) [place] % (Auto) Lymph # [place] # Seg Neutrophils % Seg Neutrophils # PT INR APTT D-Dimer POC ABG pH 7.494 H POC ABG pO2 75 L Creatinine Glucose Alkaline Phosphatase Albumin Chest x-ray: image reviewed Allied health notes reviewed: nursing
[2018-10-10] MEDS: DUONEB *Not for PRN Use IH SCH ×3 (08:47→19:58)
[2018-10-10] MEDS: SOLU-Medrol IV SCH (10:36)
[2018-10-10] MEDS: ZITHROMAX PO SCH (10:36)
[2018-10-10] MEDS: HEPARIN SUB-Q SCH ×2 (10:36→21:23)
[2018-10-10] MEDS: TRICOR PO SCH (10:36)
[2018-10-10] MEDS: NISOLDIPINE 17 MG PO SCH (10:37)
[2018-10-10] MEDS: SODIUM CHLORIDE FLUSH SYRINGE 10 ML IV SCH ×2 (10:37→21:24)
[2018-10-10] MEDS: ROCEPHIN/NS 2 GM/100 ML 2 GM/100 ML BAG IV SCH (10:37)
[2018-10-10 11:06] LABS: Hematocrit 34.4 % (35.5-45.6); Hemoglobin 11.2 gm/dl (11.8-15.2); Mean Corpuscular HGB Conc 33 % (32-34); Mean Corpuscular Volume 86 fl (84-94); Platelet Count 352 K/mm3 (140-440); Red Blood Count 3.98 M/mm3 (3.65-5.03)
--- NOTE | 2018-10-10 12:11 | Progress Note ---
Assessment and Plan Loculated pleural effusion Pneumonia Right-sided chest pain SIRS (systemic inflammatory response syndrome) ARF (acute renal failure) with tubular necrosis - still suspect empyema and will likely need CTSU evaluation for VAT's - follow sputum C&S - no post thoracentesis PTX - continue supplemental oxygen to keep sats > 90% - follow cultures and cytology of pleural fluid in particular - continue empiric AB's - GI & VTE prophylaxis - bronchodilators with pulmonary hygiene per RT - PT/OT - continue other care per attending / other consultants .... re-evaluate in am & prn Subjective Date of service: 10/10/18 Principal diagnosis: R. Loculated pleural effusion; Pneumonia (CAP); Chest pain; SIRS;DARLING Interval history: Patient is seen today for: Right Loculated pleural effusion; Pneumonia (CAP); Right-sided chest pain; SIRS (systemic inflammatory response syndrome); ARF (acute renal failure) with tubular necrosis Seen and examined at bedside; 24hour events reviewed; nursing and respiratory care staff consulted; no adverse overnight events reported to me; resting in bed; still SOB; await pleural fluid studies results; No hemoptysis; remains on s upplemental oxygen therapy Objective Vital Signs - 12hr 10/10/18 10/10/18 10/10/18 04:47 08:47 08:57 Temperature 99.1 F Pulse Rate 69 Pulse Rate [ 76 80 Anterior Bilateral Throughout] Respiratory 20 Rate Respiratory 18 20 Rate [Anterior Bilateral Throughout] Blood Pressure 119/68 O2 Sat by Pulse 96 98 Oximetry Constitutional: no acute distress, alert Eyes: non-icteric ENT: oropharynx moist, other (mallampati 3) Neck: supple, no JVD, other (large neck circumference) Effort: mildly labored Ascultation: Right: diminished breath sounds (base), Bilateral: rhonchi Percussion: Right: dull (base) Cardiovascular: regular rate and rhythm, other (No R/M) Gastrointestinal: normoactive bowel sounds, soft, non-tender, non-distended Integumentary: normal Extremities: no cyanosis, no edema, pulses normal, no ischemia or petechiae Neurologic: normal mental status, non-focal exam, pupils equal and round, CN II- XII normal, motor strength normal and Psychiatric: mood appropriate, affect normal CBC and BMP: 10/10/18 09:41 10/08/18 06:07 ABG, PT/INR, D-dimer: ABG POC ABG pH 7.494 (7.35-7.45) H 10/09/18 11:20 POC ABG pCO2 36.5 (35-45) 10/09/18 11:20 POC ABG pO2 75 (80-105) L 10/09/18 11:20 POC ABG HCO3 28.1 (22-26 mml/L) 10/09/18 11:20 POC ABG Total CO2 29 (23-27mmol/L) 10/09/18 11:20 POC ABG O2 Sat 96 10/09/18 11:20 PT/INR, D-dimer PT 16.6 Sec. (12.2-14.9) H 10/08/18 12:15 INR 1.26 (0.87-1.13) H 10/08/18 12:15 D-Dimer 1224.63 ng/mlDDU (0-234) H 10/07/18 17:28 Abnormal lab findings: Abnormal Labs 10/07/18 10/07/18 10/07/18 12:39 12:39 17:28 WBC 15.1 H Hgb 11.7 L Hct 34.8 L Lymph % (Auto) 5.8 L [place] % (Auto) 11.5 H Lymph # 0.9 L [place] # 1.7 H Seg Neutrophils % 80.9 H Seg Neutrophils # 12.2 H PT INR APTT D-Dimer 1224.63 H POC ABG pH POC ABG pO2 Creatinine 1.9 H Glucose 123 H Alkaline Phosphatase 27 L Albumin 3.4 L 10/08/18 10/08/18 10/08/18 06:07 06:07 12:15 WBC 16.7 H Hgb Hct Lymph % (Auto) 5.1 L [place] % (Auto) 11.3 H Lymph # 0.9 L [place] # 1.9 H Seg Neutrophils % 82.7 H Seg Neutrophils # 13.8 H PT 16.6 H INR 1.26 H APTT 37.7 H D-Dimer POC ABG pH POC ABG pO2 Creatinine Glucose 121 H Alkaline Phosphatase Albumin 10/09/18 10/09/18 10/10/18 08:50 11:20 09:41 WBC 18.5 H 17.1 H Hgb 11.2 L 11.2 L Hct 33.9 L 34.4 L Lymph % (Auto) [place] % (Auto) Lymph # [place] # Seg Neutrophils % Seg Neutrophils # PT INR APTT D-Dimer POC ABG pH 7.494 H POC ABG pO2 75 L Creatinine Glucose Alkaline Phosphatase Albumin Allied health notes reviewed: nursing
--- NOTE | 2018-10-10 14:23 | Progress Note ---
Assessment and Plan / Acute hypoxic respiratory failure, POA - due to right pleural effusion and rightsided PNA - cont supportive care / Pneumonia RLL Admit to medical floor with Pneumonia Protocol: cont IV antibiotic therapy, follow blood cultures, supplemental oxygen as needed, nebulizer therapy /ARF (acute renal failure) with vasomotor nephropathy, resolved cont IVF resuscitation therapy, monitor uop q shift, /Sepsis with leukocytosis, DARLING, focal PNA - POA cont Iv antibiotic therapy, IVF resuscitation therapy, /Loculated pleural effusion Treat Pneumonia, Right lateral decubitus chest x ray ordered to evaluate for layering of pleural effusion and improvement of pneumonia. s/p thoracentesis by IR 10/09/18 drained 900cc bryan colored fluid. will follow pleural fluid study Plan for placement of right chest tube /hypoalbuminemia, due to sepsis / DVT prophylaxis SCD to BLE while in bed. Prophylactic heparin Brief History: 63 YO Male with HTN presents to ED for evaluation of shortness of breath and productive couch with yellow sputum over the past 3 days. Pt was seen and evaluated by his email marketing processor and treated as outpatient with steroid therapy and NSAID therapy without relief. Pt was seen and evaluated in ED and found to have RML Pneumonia complicated by a Right Pleural Effusion, ARF, as well as poss ible sepsis. Pt admitted to medical floor and initiated on Pneumonia protocol. Pulmonary team consulted in ED. CT chest w/o contrast: 1. Large, partially loculated right pleural effusion with adjacent atelectasis versus pneumonia. 2. Unchanged cardiomegaly. 3. Unchanged mildly ectatic descending thoracic aorta measuring up to 3.3 cm. Hospitalists physical exam: GENERAL: well-developed and well-nourished white male lying on bed appeared to be in no discomfort. HEENT: Normocephalic. Atraumatic. No conjunctival congestion or icterus. Patient has moist mucous membranes. NECK: Supple. Trachea midline. CHEST/LUNGS: improved breath sounds on the right side, breathing nonlabored. No wheezes crackles or rhonchi. HEART/CARDIOVASCULAR: Regular in rate and rhythm. S1 and S2 positive. ABDOMEN: Abdomen is soft, nontender. Patient has normal bowel sounds. SKIN: There is no rash. Warm and dry. NEURO: No focal motor deficit. Follows command. MUSCULOSKELETAL: No joint effusion or tenderness. EXTRIMITY: No edema, no cyanosis or clubbing. PSYCH: Cooperative. Subjective Date of service: 10/10/18 Principal diagnosis: R. Loculated pleural effusion; Pneumonia (CAP); Chest pain; SIRS;DARLING Interval history: Patient seen and examined. Medical records and medication list reviewed. No acute event overnight noted by the RN. Patient c/o right sided chest pain and difficulty breathing. Patient is tolerating diet. Discussed plan of care at bedside with patient. Objective - Constitutional Vitals: Vital Signs - 12hr 10/10/18 10/10/18 10/10/18 04:47 08:47 08:57 Temperature 99.1 F Pulse Rate 69 Pulse Rate [ 76 80 Anterior Bilateral Throughout] Respiratory 20 Rate Respiratory 18 20 Rate [Anterior Bilateral Throughout] Blood Pressure 119/68 O2 Sat by Pulse 96 98 Oximetry 10/10/18 10/10/18 10/10/18 10:36 12:14 12:44 Temperature 99.2 F Pulse Rate 73 Pulse Rate [ Anterior Bilateral Throughout] Respiratory 18 Rate Respiratory Rate [Anterior Bilateral Throughout] Blood Pressure 127/74 125/74 O2 Sat by Pulse 90 94 Oximetry 10/10/18 13:57 Temperature Pulse Rate Pulse Rate [ 75 Anterior Bilateral Throughout] Respiratory Rate Respiratory 20 Rate [Anterior Bilateral Throughout] Blood Pressure O2 Sat by Pulse Oximetry - Labs CBC & Chem 7: 10/10/18 09:41 10/08/18 06:07 Labs: Abnormal lab results 10/10/18 Range/Units 09:41 WBC 17.1 H (4.5-11.0) K/mm3 Hgb 11.2 L (11.8-15.2) gm/dl Hct 34.4 L (35.5-45.6) %
[2018-10-10] MEDS: PERCOCET 5/325 PO PRN (14:49)
--- NOTE | 2018-10-10 15:52 | Event Note ---
Date: 10/10/18 Consult for possible placement of drainage catheter for loculated pleural effusion. Will order a repeat CT scan to determine the degree of pleural fluid following his thoracentesis earlier this week. If the fluid is truly loculated, this would require CT surgery as placing a drainage catheter would be insufficient to drain all the areas of loculation.
[2018-10-10] MEDS ORDERED: VASELINE LIP THERAPY TP PRN (22:01)
[2018-10-11] MEDS: DUONEB *Not for PRN Use IH SCH ×2 (07:23→13:14)
--- NOTE | 2018-10-11 07:50 | Progress Note ---
Assessment and Plan Empyema Loculated pleural effusion Pneumonia Right-sided chest pain ARF (acute renal failure) with tubular necrosis - empyema and will likely need CTSU evaluation for VATS ( explained in detail to the and the patient. reviewed images with them) - continue supplemental oxygen to keep sats > 90% - follow cultures - continue empiric AB for CAP -Stop steroid - GI & VTE prophylaxis - bronchodilators with pulmonary hygiene per RT - PT/OT - continue other care per attending / other consultants Discussed extensively with the family, patient and the hospitalist service. Arrange for transfer to facility with CTsurgery capabilities for VATS Discussed with [facility] at [facility], will accept patient in transfer. Notified the patient. Patient needs to be transferred with CD-ROM of chest images. Subjective Date of service: 10/11/18 Principal diagnosis: R. Loculated pleural effusion; Pneumonia (CAP); Chest pain; SIRS;DARLING Interval history: Patient is seen today for: Right Loculated pleural effusion; Pneumonia (CAP); Right-sided chest pain; ARF (acute renal failure) with tubular necrosis Seen and examined at bedside; 24hour events reviewed; nursing and respiratory care staff consulted; no adverse overnight events reported to me; feels much better s/p thoracentesis; no acute chest pains or palpitations; NO N/V/F/C. On going shortness of breath with fevers. s/p repeat CT chest. and cousin at the bedside Objective Vital Signs - 12hr 10/10/18 10/10/18 10/10/18 19:59 20:01 20:15 Temperature Pulse Rate Pulse Rate [ 76 78 Anterior Bilateral Throughout] Respiratory Rate Respiratory 20 20 Rate [Anterior Bilateral Throughout] Blood Pressure O2 Sat by Pulse 97 Oximetry 10/10/18 10/11/18 10/11/18 22:07 07:24 07:25 Temperature 98.6 F Pulse Rate 71 Pulse Rate [ 75 Anterior Bilateral Throughout] Respiratory 20 Rate Respiratory 18 Rate [Anterior Bilateral Throughout] Blood Pressure 134/79 O2 Sat by Pulse 95 96 Oximetry 10/11/18 07:29 Temperature Pulse Rate Pulse Rate [ 78 Anterior Bilateral Throughout] Respiratory Rate Respiratory 18 Rate [Anterior Bilateral Throughout] Blood Pressure O2 Sat by Pulse Oximetry Constitutional: alert, appears uncomfortable Eyes: non-icteric ENT: oropharynx moist, other (mallampati 3) Neck: supple, no JVD, other (large neck circumference) Effort: mildly labored Ascultation: Right: diminished breath sounds (base), Bilateral: rhonchi Percussion: Right: not dull, dull (base) Cardiovascular: regular rate and rhythm, other (No R/M) Gastrointestinal: normoactive bowel sounds, soft, non-tender, non-distended Integumentary: normal Extremities: no cyanosis, no edema, pulses normal, no ischemia or petechiae Neurologic: normal mental status, non-focal exam, pupils equal and round, CN II- XII normal, motor strength normal and Psychiatric: mood appropriate, affect normal CBC and BMP: 10/10/18 09:41 10/08/18 06:07 ABG, PT/INR, D-dimer: ABG POC ABG pH 7.494 (7.35-7.45) H 10/09/18 11:20 POC ABG pCO2 36.5 (35-45) 10/09/18 11:20 POC ABG pO2 75 (80-105) L 10/09/18 11:20 POC ABG HCO3 28.1 (22-26 mml/L) 10/09/18 11:20 POC ABG Total CO2 29 (23-27mmol/L) 10/09/18 11:20 POC ABG O2 Sat 96 10/09/18 11:20 PT/INR, D-dimer PT 16.6 Sec. (12.2-14.9) H 10/08/18 12:15 INR 1.26 (0.87-1.13) H 10/08/18 12:15 D-Dimer 1224.63 ng/mlDDU (0-234) H 10/07/18 17:28 Abnormal lab findings: Abnormal Labs 10/07/18 10/07/18 10/07/18 12:39 12:39 17:28 WBC 15.1 H Hgb 11.7 L Hct 34.8 L Lymph % (Auto) 5.8 L [place] % (Auto) 11.5 H Lymph # 0.9 L [place] # 1.7 H Seg Neutrophils % 80.9 H Seg Neutrophils # 12.2 H PT INR APTT D-Dimer 1224.63 H POC ABG pH POC ABG pO2 Creatinine 1.9 H Glucose 123 H Alkaline Phosphatase 27 L Albumin 3.4 L 10/08/18 10/08/18 10/08/18 06:07 06:07 12:15 WBC 16.7 H Hgb Hct Lymph % (Auto) 5.1 L [place] % (Auto) 11.3 H Lymph # 0.9 L [place] # 1.9 H Seg Neutrophils % 82.7 H Seg Neutrophils # 13.8 H PT 16.6 H INR 1.26 H APTT 37.7 H D-Dimer POC ABG pH POC ABG pO2 Creatinine Glucose 121 H Alkaline Phosphatase Albumin 10/09/18 10/09/18 10/10/18 08:50 11:20 09:41 WBC 18.5 H 17.1 H Hgb 11.2 L 11.2 L Hct 33.9 L 34.4 L Lymph % (Auto) [place] % (Auto) Lymph # [place] # Seg Neutrophils % Seg Neutrophils # PT INR APTT D-Dimer POC ABG pH 7.494 H POC ABG pO2 75 L Creatinine Glucose Alkaline Phosphatase Albumin CT scan - chest: image reviewed (Persistent loculated right pleural effusion with multilobar infiltrates) Allied health notes reviewed: nursing
[2018-10-11] MEDS: SOLU-Medrol IV SCH (10:55)
[2018-10-11] MEDS: ROCEPHIN/NS 2 GM/100 ML 2 GM/100 ML BAG IV SCH (10:55)
[2018-10-11] MEDS: HEPARIN SUB-Q SCH (10:56)
[2018-10-11] MEDS: ZITHROMAX PO SCH (10:56)
[2018-10-11] MEDS: NISOLDIPINE 17 MG PO SCH (10:56)
[2018-10-11] MEDS: TRICOR PO SCH (10:56)
[2018-10-11] MEDS: SODIUM CHLORIDE FLUSH SYRINGE 10 ML IV SCH (10:57)
--- NOTE | 2018-10-11 12:49 | Progress Note ---
Assessment and Plan / Acute hypoxic respiratory failure, POA - due to right pleural effusion and rightsided PNA - cont supportive care / Pneumonia RLL Admit to medical floor with Pneumonia Protocol: cont IV antibiotic therapy, follow blood cultures, supplemental oxygen as needed, nebulizer therapy /ARF (acute renal failure) with vasomotor nephropathy, resolved cont IVF resuscitation therapy, monitor uop q shift, /Sepsis with leukocytosis, DARLING, focal PNA - POA cont Iv antibiotic therapy, IVF resuscitation therapy, /Loculated pleural effusion Treat Pneumonia, Right lateral decubitus chest x ray ordered to evaluate for layering of pleural effusion and improvement of pneumonia. s/p thoracentesis by IR 10/09/18 drained 900cc bryan colored fluid. will follow pleural fluid study Plan for placement of right chest tube /hypoalbuminemia, due to sepsis / DVT prophylaxis SCD to BLE while in bed. Prophylactic heparin Brief History: 63 YO Male with HTN presents to ED for evaluation of shortness of breath and productive couch with yellow sputum over the past 3 days. Pt was seen and evaluated by his radiologic therapist and treated as outpatient with steroid therapy and NSAID therapy without relief. Pt was seen and evaluated in ED and found to have RML Pneumonia complicated by a Right Pleural Effusion, ARF, as well as poss ible sepsis. Pt admitted to medical floor and initiated on Pneumonia protocol. Pulmonary team consulted in ED. CT chest w/o contrast: 1. Large, partially loculated right pleural effusion with adjacent atelectasis versus pneumonia. 2. Unchanged cardiomegaly. 3. Unchanged mildly ectatic descending thoracic aorta measuring up to 3.3 cm. Hospitalists physical exam: GENERAL: well-developed and well-nourished white male lying on bed appeared to be in no discomfort. HEENT: Normocephalic. Atraumatic. No conjunctival congestion or icterus. Patient has moist mucous membranes. NECK: Supple. Trachea midline. CHEST/LUNGS: improved breath sounds on the right side, breathing nonlabored. No wheezes crackles or rhonchi. HEART/CARDIOVASCULAR: Regular in rate and rhythm. S1 and S2 positive. ABDOMEN: Abdomen is soft, nontender. Patient has normal bowel sounds. SKIN: There is no rash. Warm and dry. NEURO: No focal motor deficit. Follows command. MUSCULOSKELETAL: No joint effusion or tenderness. EXTRIMITY: No edema, no cyanosis or clubbing. PSYCH: Cooperative. Subjective Date of service: 10/11/18 Principal diagnosis: R. Loculated pleural effusion; Pneumonia (CAP); Chest pain; SIRS;DARLING Objective - Constitutional Vitals: Vital Signs - 12hr 10/11/18 10/11/18 10/11/18 07:24 07:25 07:29 Pulse Rate [ 75 78 Anterior Bilateral Throughout] Respiratory 18 18 Rate [Anterior Bilateral Throughout] O2 Sat by Pulse 96 Oximetry - Labs CBC & Chem 7: 10/10/18 09:41 10/08/18 06:07
[2018-10-11] MEDS ORDERED: NACL 0.45% 1000 ML 1,000 ML IV SCH (13:00)
--- NOTE | 2018-10-11 14:43 | Discharge Summary ---
Providers - Providers Date of Admission: 10/07/18 14:58 Date of discharge: 10/11/18 Attending physician: TASIA REEVES 10/07/18 14:58 Consult to Physician [CONS] Routine Comment: Consulting Provider: ELA FU Physician Instructions: Reason For Exam: Pleural effusion 10/10/18 12:10 Consult to Interventional Radiology [CONS] Urgent Consulting Provider: LILIYA MOORE Reason For Exam: Right loculated pleural effusion Notified:: NO [facility] Condition: Fair Pertinent studies: CXR Chest CT Thoracic US for Thoracentesis Hospital course: Brief History: 63 YO Male with HTN presented to ED for evaluation of shortness of breath and productive couch with yellow sputum over the past 3 days. Pt was seen and evaluated by his undergraduate intern and treated as outpatient with steroid therapy and NSAID therapy without relief. In the ED found to have RML Pneumonia complicated by a Right Pleural Effusion, ARF, as well as possible sepsis. Patient was admitted to medical floor and initiated on Pneumonia protocol. Pulmonary team consulted in ED. He was treated with iv abx, had thoracentesis for right pleural effusion, given as needed breathing treatment and supplemental O2. Pulmonology recommended VATS for loculated pleural effusion. He was then transferred to [facility] [place] main to be evaluated by the cardiothoracic surgeon. CT chest w/o contrast: 1. Large, partially loculated right pleural effusion with adjacent atelectasis versus pneumonia. 2. Unchanged cardiomegaly. 3. Unchanged mildly ectatic descending thoracic aorta measuring up to 3.3 cm. Discharge diagnosis: / Acute hypoxic respiratory failure, POA - due to right pleural effusion and rightsided PNA - treated with supplemntal O2, as needed nebs, iv abx and thoracentesis / Pneumonia RLL Placed on IV antibiotic, supplemental oxygen and nebulizer therapy as needed, /ARF (acute renal failure) with vasomotor nephropathy, resolved with IVF resuscitation therapy, /Sepsis with leukocytosis, DARLING, focal PNA - POA treated with Iv antibiotic therapy and IVF /Loculated pleural effusion s/p thoracentesis by IR 10/09/18 drained 900cc bryan colored fluid. Planned for VATS by cardiothoracic surgery - patient was transferred to [facility] [place] [facility] for VATS /hypoalbuminemia, due to sepsis / DVT prophylaxis SCD to BLE while in bed. Prophylactic heparin Hospitalists physical exam: GENERAL: well-developed and well-nourished white male lying on bed appeared to be in no discomfort. HEENT: Normocephalic. Atraumatic. No conjunctival congestion or icterus. Patient has moist mucous membranes. NECK: Supple. Trachea midline. CHEST/LUNGS: improved breath sounds on the right side, breathing nonlabored. No wheezes crackles or rhonchi. HEART/CARDIOVASCULAR: Regular in rate and rhythm. S1 and S2 positive. ABDOMEN: Abdomen is soft, nontender. Patient has normal bowel sounds. SKIN: There is no rash. Warm and dry. NEURO: No focal motor deficit. Follows command. MUSCULOSKELETAL: No joint effusion or tenderness. EXTRIMITY: No edema, no cyanosis or clubbing. PSYCH: Cooperative. [id number] IP Time spent for discharge: 34 minutes Core Measure Documentation - Palliative Care Palliative Care/ Comfort Measures: Not Applicable - Core Measures Any of the following diagnoses?: none Exam - Constitutional Vitals: Temp Pulse Resp BP Pulse Ox 98.6 F 85 18 134/79 96 10/10/18 22:07 10/11/18 13:20 10/11/18 13:20 10/10/18 22:07 10/11/18 07:25 Plan Activity: other (best rest) Diet: low fat Follow up with: AISHWARYA FREIRE MD [Primary Care Provider] - 3-5 Days ELA FU MD [Staff Physician] - 7 Days Prescriptions: cefTRIAXone [Rocephin] 1 gm IV Q24HR #7 vial
[2018-10-11 18:08] VITALS: BP 138/76
--- NOTE | 2018-10-13 16:12 | Cat Scan Report ---
PROCEDURE: CT CHEST W CON TECHNIQUE: CT of chest with IV contrast. Coronal and sagittal reconstructed images provided. CT DOSE LENGTH PRODUCT: 973.8 mGy-cm. HISTORY: loculated right pleural fluid COMPARISONS: CT chest October 07, 2018. FINDINGS: Large right partially loculated pleural effusion demonstrates a new loculated component in the right apical lung which was not present on the prior. Effusion at the right lung base is mildly decreased c ompared to prior. Adjacent areas of compressive atelectasis noted. No pneumothorax. No distinct endob ronchial lesions. Underlying mass or consolidation is not entirely excluded. Left lung remains clear without pneumothorax, consolidation, or effusion. No endobronchial lesions. Minimal discoid subsegmen mulu atelectasis at both lung bases. Main pulmonary artery is unremarkable. No aneurysm. No dissection. Major branch arteries are within normal limits. No significant atheroscle rotic disease. Stable cardiomegaly. No pericardial effusion. Coronary artery disease. There is no axillary adenopathy. Subcentimeter prominent mediastinal lymph node is stable in size compared to the prior. No mass. No s ignificant adenopathy. Hilar regions are unremarkable. Limited images of the thyroid gland are unremarkable. Limited images of the esophagus are unremarkable. Bones: No suspicious osseous lesions on this limited examination of the skeleton. Metastatic disease better evaluated with bone scan. Degenerative changes are present in the spine. IMPRESSION: * Partially loculated large right pleural effusion slightly decreased at the right lung base. New la rge loculated component in the right upper lobe. * Stable cardiomegaly. This document is electronically signed by Barrie Feliciano MD., Oct 13 2018 04:10:10 PM ET
[2018-10-14 14:51] LABS: Total Protein,Body Fluid 4.8 (15.0-45.0)
[2018-10-14 14:52] LABS: LDH,Body Fluid 1748
== END 2018-10-11 18:51 | disposition short-term general hospital (02) | DRG 871 ==
LOC: ED 11:54 → 3A 14:58
PROVIDERS: ADMIT Internal Medicine; ATTEND Internal Medicine
PROC: 0W993ZZ Drainage of Right Pleural Cavity, Percutaneous Approach (ICD-10-PCS; principal; 2018-10-09)
PROC: 4A033R1 Measurement of Arterial Saturation, Peripheral, Percutaneous Approach (ICD-10-PCS; 2018-10-09)
DX: A41.9 Sepsis, unspecified organism (principal); N17.0 Acute kidney failure with tubular necrosis; J18.1 Lobar pneumonia, unspecified organism; J96.01 Acute respiratory failure with hypoxia; J91.8 Pleural effusion in other conditions classified elsewhere; Z82.49 Family history of ischemic heart disease and other diseases of the circulatory system; Z79.899 Other long term (current) drug therapy; Z87.891 Personal history of nicotine dependence
CPT/HCPCS: 32555; 36415; 36600; 71045; 71046; 71250; 71260; 80048; 80053; 82803; 82947; 83605; 83880; 84160; 84484; 85025; 85027; 85379; 85610; 85730; 87040; 87070; 87116; 87205; 88112; 88305; 89051; 93005; 93010; 94640; 94760; G0378; J0456; J0696; J1644; J2270; J2920; J7030; J7050; Q9967